=== PATIENT | male | born 1965 | race Caucasian/White ===

== ENCOUNTER 2018-02-26 00:06 | Inpatient (IN) ==
[2018-02-21 13:29] LABS: HEMATOCRIT 48.7 % (42.0-52.0); HEMOGLOBIN 15.9 g/dL (14.0-18.0); MCHC 32.6 g/dL (33-37); MCV 85.9 FL (81-99); RBC 5.67 XMIL (4.7-6.1); WBC 10.28 X1000 (4.8-10.8)
[2018-02-21 13:43] LABS: AGAP 13; BUN 16 mg/dL (8-22); CALCIUM 10.6 mg/dL (8.8-10.2); CHLORIDE 103 mmol/L (98-107); COSMO 283; CREATININE 1.2 mg/dL (0.7-1.2); ESTIMATED GFR > 60; GLUCOSE 100 mg/dL (70-104); POTASSIUM 4.8 mmol/L (3.5-5.1); SODIUM 141 mmol/L (136-145); TCO2 25 mmol/L (25-35)
[2018-02-26] MEDS ORDERED: REGLAN ONE (05:37)
[2018-02-26] MEDS ORDERED: PEPCID ONE (05:37)
[2018-02-26] MEDS ORDERED: LR 1,000 ML ONE ×2 (05:38→07:05)
[2018-02-26] MEDS ORDERED: INVANZ 1 GM/NS 1 GM/50 ML IVPB ONE (05:38)
[2018-02-26] MEDS ORDERED: XYLOCAINE-MPF 2% ONE (06:18)
[2018-02-26] MEDS ORDERED: VERSED ONE (06:18)
[2018-02-26] MEDS ORDERED: QUELICIN (DOSE) ONE (06:19)
[2018-02-26] MEDS ORDERED: DIPRIVAN 1% ONE (06:19)
[2018-02-26] MEDS ORDERED: SODIUM CHLORIDE 0.9% 10 ML ONE (06:19)
[2018-02-26] MEDS ORDERED: NORCURON ONE (06:19)
[2018-02-26] MEDS ORDERED: FENTANYL ONE ×2 (06:19→10:21)
[2018-02-26] MEDS ORDERED: SENSORCAINE-MPF 0.5%/EPI 1:200,000 ONE (07:05)
[2018-02-26] MEDS ORDERED: ZOFRAN ONE ×2 (07:27→11:59)
[2018-02-26] MEDS ORDERED: DECADRON ONE ×2 (07:27→11:59)
[2018-02-26] MEDS ORDERED: EPHEDRINE ONE ×2 (07:36→09:39)
[2018-02-26] MEDS ORDERED: OFIRMEV 1000 MG/ISOTONIC SOLN 1,000 MG/100 ML BOTTLE ONE ×2 (08:30→11:55)
[2018-02-26] MEDS ORDERED: NEOSTIGMINE ONE (08:32)
[2018-02-26] MEDS ORDERED: ROBINUL ONE (08:32)
[2018-02-26 09:11] LABS: URINE SOURCE CATH
[2018-02-26 09:17] LABS: BILIRUBIN URINE NEGATIVE (NEGATIVE); BLOOD URINE NEGATIVE (NEGATIVE); COLOR YELLOW; GLUCOSE URINE NEGATIVE (NEGATIVE); KETONE URINE TRACE mg/dL (NEGATIVE); LEUKOCYTES URINE TRACE (NEGATIVE); NITRITE URINE NEGATIVE (NEGATIVE); PROTEIN URINE 30 mg/dL (NEGATIVE); SP GRAVITY URINE 1.029; TURBIDITY URINE CLEAR (CLEAR); UR EPITHELIAL CELLS <10 /HPF (<10); URINE BACTERIA NEGATIVE /HPF; URINE RBC <10 /HPF (<10); URINE WBC <10 /HPF (<10); UROBILINOGEN URINE NORMAL (NORMAL)
[2018-02-26] MEDS ORDERED: D5 LR 1,000 ML ONE (10:46)
[2018-02-26] MEDS ORDERED: MORPHINE ONE ×4 (11:11→13:55)
--- NOTE | 2018-02-26 14:30 | OPERATIVE NOTE ---
PROCEDURE DATE: 02/26/2018 PREOPERATIVE DIAGNOSES: 1. History of perforated diverticulitis. 2. Status post Adrian procedure. POSTOP DIAGNOSIS: 1. History of perforated diverticulitis. 2. Status post Adrian procedure. PROCEDURE: 1. Diagnostic colonoscopy through the stoma. 2. Laparoscopic colostomy takedown with partial colon resection. SURGEON: Greg Elizondo MD. ANESTHESIA: General. LABORER ELECTROPLATING: Cristian Villavicencio MD. ESTIMATED BLOOD LOSS: 20 mL. COMPLICATIONS: None apparent. SPECIMENS: Portion of the colon at the colostomy site. FINDINGS: The colonoscopy did not reveal any adenomatous polyps. There were a few small hyperplastic polyps. The rectum was also examined with the colonoscope and I did not find any adenomatous polyps in the rectum. The scope was advanced first through the anus all the way up to the rectal stump. I then inserted it into the stoma and was able to navigate around to the terminal ileum and quite easily I visualized the appendiceal orifice and then upon slow withdrawal did not find any pathologic lesions. At the conclusion after the anastomosis we did a anastomotic leak test with proctoscopy and did not see any signs of leak. TECHNIQUE: The patient was brought to the operating room. He was first placed on his left side after general anesthesia was induced. A digital rectal exam was performed. There were no distal rectal masses. There were some clumps of mucus in the distal rectum and anal canal. The colonoscope was advanced into the rectum and up to the staple line. I did not find any pathologic lesions. I then advanced the colonoscope after the patient was placed supine through the left lower quadrant stoma all the way around to the cecum and brought it out slowly. Did not find any pathologic lesions. He was then prepped and draped in usual sterile fashion in [facility] and I scrubbed and then made a 5 mm incision in the right upper quadrant and entered the peritoneal cavity under direct vision the Optiview device. There were quite a bit of adhesions of the small bowel and colon and omentum to the anterior abdominal wall. I was able to find a landing spot for another 5 mm incision and port in the right lower quadrant. Through these ports, I worked to take down the adhesions working bluntly and using the LigaSure device. I then mobilized enough so that I could expose an area in the midline above the umbilicus where I placed an 11 mm incision and port. I then continued mobilizing the omentum off the abdominal wall. I took down adhesions of the small bowel to the stoma and also mobilized the small bowel out of the pelvis, incising quite a few adhesions of the small bowel. When this was complete I then went and passed a dilator up the rectum to ensure that we had a good rectal stump and indeed we did. I rescrubbed into a sterile field. I did mobilize the lateral peritoneal attachments so that the stump was more mobile. I did see the Prolene sutures that were placed on the corners of the stump. These were helpful for identification. I then incised the skin around the stoma in elliptical fashion with a knife and carried this down with cautery through the subcutaneous fat down to the fascia. The stoma was completely mobilized away from the fascia carefully with Metzenbaum scissors and cautery and when it was completely mobile, I resected the distal aspect of the skin and colon 1st by placing a pursestring device proximally and dividing it distally with a knife. The pursestring device was removed. The bowel was opened. I could not pass the 28 dilator into the colon, so we elected to use a 25 anvil and stapler. The anvil was passed in the colon. The pursestring suture was cinched around the anvil. I cleared the fat away so the serosa was exposed all the way around. I then dropped it back into the peritoneal cavity. I closed the peritoneum and posterior fascia with a running #1 Vicryl and closed the anterior fascia with a running #1 Maxon. I then re-insufflated the abdomen. Dr. Villavicencio was present at this portion of the case and helpful throughout the remaining portion with the anastomosis. Dr. Villavicencio passed the stapler up to the rectal stump end and passed the spike out. At first the anvil and colon did not reach down to it easily so I took down more of the white line of Toldt attachments as well as some more small bowel attachments to the descending colon mesentery. This was done with the LigaSure device. We then had enough mobility to bring the colon and anvil down to the spike. We attached the 2 in proper orientation and then Dr. Villavicencio closed the stapler successfully and fired it. He removed the stapler. The donuts were intact, although the proximal donut was somewhat thin on one side. Dr. Villavicencio then placed the proctoscope into the rectum and insufflated air. I put the anastomosis under water and laparoscopically inspected for any signs of leakage of bubbles and we did not see any. Once this was complete I suctioned out the irrigation in the pelvis. I looked around and did not see any bleeding. The bowel appeared to be in good order without any signs of injury. We deflated the abdomen, removed the ports. The epigastric port site fascia was closed with a [id number] 0 Vicryl. The Hollie fascia of the stoma site was closed with interrupted #1 Vicryl pops and then the skin was closed with skin clips. He was awakened in stable condition. There were no apparent complications. He was transferred to the recovery room. cc: Greg Elizondo MD
[2018-02-26] MEDS: MORPHINE IV PRN ×2 (16:25→23:50)
[2018-02-26] MEDS: NORCO-10 PO PRN (18:05)
[2018-02-26] MEDS: ZOFRAN IV PRN (18:08)
[2018-02-26] MEDS: D5 LR 1,000 ML IV SCH (18:34)
[2018-02-27] MEDS: D5 LR 1,000 ML IV SCH ×2 (04:06→15:04)
[2018-02-27] MEDS: MORPHINE IV PRN (04:06)
[2018-02-27] MEDS: ZOFRAN IV PRN ×2 (04:58→19:40)
[2018-02-27] MEDS: LOVENOX SUBQ SCH ×2 (04:58→05:23)
[2018-02-27 05:42] LABS: HEMATOCRIT 41.5 % (42.0-52.0); HEMOGLOBIN 13.8 g/dL (14.0-18.0); MCH 28.6 PG (27-31); MCHC 33.3 g/dL (33-37); MCV 85.9 FL (81-99); MPV 9.2 FL (7.4-10.4); RBC 4.83 XMIL (4.7-6.1); RDW 14.9 % (11.5-14.5); WBC 11.8 X1000 (4.8-10.8)
[2018-02-27 06:00] LABS: AGAP 10; BUN 13 mg/dL (8-22); CALCIUM 8.6 mg/dL (8.8-10.2); CHLORIDE 104 mmol/L (98-107); COSMO 281; ESTIMATED GFR > 60; GLUCOSE 120 mg/dL (70-104); POTASSIUM 3.5 mmol/L (3.5-5.1); SODIUM 140 mmol/L (136-145); TCO2 26 mmol/L (25-35)
[2018-02-27] MEDS ORDERED: FLU VACCINE IM ONE (09:06)
--- NOTE | 2018-02-27 09:13 | GENERAL SURGERY PROGRESS NOTE ---
DATE: 02/27/2018 SUBJECTIVE: He is complaining of pain and says the morphine is not helping. He has had a little nausea and some gas type pain. OBJECTIVE: Vital Signs: He is afebrile. Vital signs are stable. General: He is awake, alert, and oriented x3. No acute distress. Gastrointestinal: Soft, nondistended. Hypoactive bowel sounds. Incision is clean, dry, and intact. Laboratory: White blood cell count 11.8, hemoglobin 13.8, hematocrit 41.5. Electrolytes reviewed and unremarkable. ASSESSMENT/PLAN: A 53-year-old male postoperative day 1 laparoscopic colostomy reversal. We will change his morphine to Dilaudid. I have encouraged him to be out of bed today. We will discontinue the Lizama catheter tomorrow. He will remain on clear liquids as tolerated for now. cc: Greg Elizondo MD
[2018-02-27] MEDS: DILAUDID IV PRN ×4 (09:17→18:21)
[2018-02-27] MEDS: FLAGYL 500 MG/NS 500 MG/100 ML IVPB IV SCH ×3 (09:17→21:02)
[2018-02-27] MEDS: PERIDEX MT SCH ×2 (09:18→21:02)
[2018-02-27] MEDS: NORVASC PO SCH (09:18)
[2018-02-27] MEDS: COZAAR PO SCH (09:18)
[2018-02-27] MEDS ORDERED: PHENERGAN IV ONE (20:46)
[2018-02-27] MEDS ORDERED: SODIUM CHLORIDE 0.9% INJ ONE (20:46)
[2018-02-28] MEDS: ZOFRAN IV PRN ×2 (00:30→11:46)
[2018-02-28] MEDS: DILAUDID IV PRN ×7 (00:30→23:07)
[2018-02-28] MEDS: FLAGYL 500 MG/NS 500 MG/100 ML IVPB IV SCH ×2 (03:29→08:34)
[2018-02-28] MEDS: LOVENOX SUBQ SCH (06:43)
[2018-02-28] MEDS: D5 LR 1,000 ML IV SCH ×2 (07:21→22:45)
[2018-02-28] MEDS: COZAAR PO SCH (08:35)
[2018-02-28] MEDS: PERIDEX MT SCH ×3 (08:36→21:45)
[2018-02-28] MEDS: NORVASC PO SCH (08:36)
[2018-02-28 09:18] LABS: BASO# 0.04 X1000 (0.0-0.2); BASO% 0.2 % (0.0-0.8); EOS% 0.6 % (0.0-10.0); HEMATOCRIT 45.2 % (42.0-52.0); HEMOGLOBIN 14.7 g/dL (14.0-18.0); IMM GRAN# 0.02 X1000 (0.0-0.04); IMM GRAN% 0.1 % (0.0-0.5); LYMPH# 1.82 X1000 (1.2-3.4); LYMPH% 11.3 % (20.5-51.1); MCH 27.9 PG (27-31); MCHC 32.5 g/dL (33-37); MCV 85.9 FL (81-99); MONO# 1.28 X1000 (0.11-0.59); MONO% 7.9 % (1.7-9.3); MPV 9.5 FL (7.4-10.4); NEUT# 12.89 X1000 (1.4-6.5); NEUT% 79.9 % (42.2-75.2); PLT 418 X1000 (130-400); RBC 5.26 XMIL (4.7-6.1); RDW 15.2 % (11.5-14.5); WBC 16.15 X1000 (4.8-10.8)
[2018-02-28 09:55] LABS: AGAP 12; BUN 19 mg/dL (8-22); CALCIUM 9.4 mg/dL (8.8-10.2); CHLORIDE 100 mmol/L (98-107); COSMO 284; CREATININE 1.2 mg/dL (0.7-1.2); ESTIMATED GFR > 60; GLUCOSE 143 mg/dL (70-104); POTASSIUM 3.4 mmol/L (3.5-5.1); SODIUM 140 mmol/L (136-145); TCO2 28 mmol/L (25-35)
--- NOTE | 2018-02-28 10:44 | Diag Imaging Result Doc PS360 ---
EXAM: CHEST/ABD TUBE PLACEMENT 02/28/2018 HISTORY: NG tube placement TECHNIQUE: AP chest and abdomen for NG tube placement at 1032 COMMENT: The NG tube tip is in the fundus of the stomach. There is gas throughout the visualized small and large bowel. IMPRESSION: NG tube in the stomach. Electronically signed by Mathieu Kim 02/28/2018 10:42 AM
[2018-02-28] MEDS: PROTONIX IV SCH (16:54)
[2018-02-28] MEDS: SODIUM CHLORIDE 0.9% INJ SCH (16:54)
[2018-02-28 17:04] LABS: HEMATOCRIT 42.7 % (42.0-52.0); HEMOGLOBIN 13.9 g/dL (14.0-18.0)
[2018-02-28] MEDS ORDERED: CHLORASEPTIC SORE THROAT LOZENGE MT PRN (20:28)
[2018-02-28] MEDS: CHLORASEPTIC SPRAY MT PRN (23:15)
[2018-03-01] MEDS: PROTONIX IV SCH ×2 (04:03→17:09)
[2018-03-01] MEDS: SODIUM CHLORIDE 0.9% INJ SCH ×2 (04:03→17:09)
[2018-03-01] MEDS: CHLORASEPTIC SPRAY MT PRN (04:03)
[2018-03-01] MEDS: DILAUDID IV PRN ×5 (04:03→22:50)
[2018-03-01] MEDS: LOVENOX SUBQ SCH (05:39)
[2018-03-01 05:57] LABS: BASO# 0.03 X1000 (0.0-0.2); BASO% 0.3 % (0.0-0.8); EOS# 0.24 X1000 (0.0-0.7); HEMATOCRIT 40.5 % (42.0-52.0); IMM GRAN# 0.02 X1000 (0.0-0.04); IMM GRAN% 0.2 % (0.0-0.5); LYMPH# 1.38 X1000 (1.2-3.4); LYMPH% 11.8 % (20.5-51.1); MCH 28.4 PG (27-31); MCHC 32.1 g/dL (33-37); MCV 88.4 FL (81-99); MONO# 0.88 X1000 (0.11-0.59); MONO% 7.5 % (1.7-9.3); MPV 9.7 FL (7.4-10.4); NEUT# 9.16 X1000 (1.4-6.5); NEUT% 78.2 % (42.2-75.2); PLT 367 X1000 (130-400); RBC 4.58 XMIL (4.7-6.1); RDW 15.2 % (11.5-14.5); WBC 11.71 X1000 (4.8-10.8)
--- NOTE | 2018-03-01 06:00 | GENERAL SURGERY PROGRESS NOTE ---
DATE: 02/28/2018 SUBJECTIVE: The patient feels rather lousy today. Some abdominal pain. He has had multiple episodes of nausea and vomiting. An NG tube was placed earlier by the nursing staff, and he has had over a 1000 mL of dark [id number]-[id number]-tinged gastric fluid removed. He does feel a little better after this. OBJECTIVE: Vital Signs: He is afebrile. Vital signs are stable. General: He is awake, alert and oriented x3, but does appear to be ill. He is nontoxic appearing. Cardiovascular: Regular rate and rhythm. Respiratory: Bilateral breath sounds. No work of breathing. Gastrointestinal: Soft, nondistended. Hypoactive bowel sounds. Incision is clean, dry, and intact. LABORATORIES: Reviewed. ASSESSMENT/PLAN: The patient is a 62-year-old male status post colostomy takedown, now with postoperative nausea and vomiting. He appears to have gastritis and some upper gastrointestinal bleed. We will check a hemoglobin and hematocrit this afternoon and make sure he is on Protonix. We will keep the nasogastric tube to suction and await better return of bowel function. cc: Greg Elizondo MD
--- NOTE | 2018-03-01 09:52 | GENERAL SURGERY PROGRESS NOTE ---
DATE: 03/01/2018 SUBJECTIVE: The patient is feeling a little better today, less pain, and less nausea. He has started passing quite a bit of gas, he says. No chest pain. No shortness of breath. OBJECTIVE: Vital signs: He is afebrile. Vital signs are stable. NG tube output 1525 mL over the last 24 hours, most of that yesterday morning, only 300 mL last night. General: He is alert and orient x4 in no acute distress. CV: Regular rate and rhythm. Respiratory: Bilateral breath sounds. No work of breathing. Gastrointestinal: Soft, nondistended. He does have bowel sounds. Incision is clean, dry, and intact. Mild tenderness to palpation as expected. LABORATORY: White blood cell count 11, hemoglobin 13, hematocrit 40.5. ASSESSMENT AND PLAN: A 53-year-old male status post colostomy takedown with postoperative nausea and vomiting. This is improving. We will clamp his NG tube, and check a residual in 6 hours. Possibly remove it later today and start clear liquids again. I have encouraged him to be out of bed to a chair. He is on Lovenox for deep venous thrombosis prophylaxis. cc: Greg Elizondo MD
[2018-03-01] MEDS: PERIDEX MT SCH ×2 (10:06→22:46)
[2018-03-01] MEDS: D5 1/2 NS + KCL 20 MEQ 1,000 ML IV SCH (11:41)
[2018-03-01] MEDS: COZAAR PO SCH (14:20)
[2018-03-01] MEDS: NORVASC PO SCH (14:20)
[2018-03-01] MEDS: NORCO-10 PO PRN (22:45)
[2018-03-02] MEDS: D5 1/2 NS + KCL 20 MEQ 1,000 ML IV SCH (01:02)
[2018-03-02] MEDS: DILAUDID IV PRN ×7 (01:47→21:09)
[2018-03-02] MEDS: ZOFRAN IV PRN (03:51)
[2018-03-02] MEDS: NORCO-10 PO PRN (03:51)
[2018-03-02] MEDS: SODIUM CHLORIDE 0.9% INJ SCH ×2 (04:49→17:39)
[2018-03-02] MEDS: PROTONIX IV SCH ×2 (04:49→17:39)
[2018-03-02] MEDS: LOVENOX SUBQ SCH ×2 (04:56→08:24)
[2018-03-02 06:15] LABS: BASO# 0.03 X1000 (0.0-0.2); BASO% 0.3 % (0.0-0.8); EOS# 0.49 X1000 (0.0-0.7); EOS% 5.5 % (0.0-10.0); HEMATOCRIT 37.8 % (42.0-52.0); HEMOGLOBIN 12.3 g/dL (14.0-18.0); LYMPH# 1.67 X1000 (1.2-3.4); LYMPH% 18.7 % (20.5-51.1); MCH 28.5 PG (27-31); MCHC 32.5 g/dL (33-37); MCV 87.7 FL (81-99); MONO# 0.78 X1000 (0.11-0.59); MONO% 8.7 % (1.7-9.3); MPV 9.7 FL (7.4-10.4); NEUT# 5.97 X1000 (1.4-6.5); NEUT% 66.8 % (42.2-75.2); PLT 342 X1000 (130-400); RBC 4.31 XMIL (4.7-6.1); RDW 14.5 % (11.5-14.5); WBC 8.94 X1000 (4.8-10.8)
[2018-03-02 06:54] LABS: AGAP 9; BUN 8 mg/dL (8-22); CALCIUM 8.8 mg/dL (8.8-10.2); CHLORIDE 100 mmol/L (98-107); COSMO 277; CREATININE 0.9 mg/dL (0.7-1.2); ESTIMATED GFR > 60; GLUCOSE 121 mg/dL (70-104); POTASSIUM 3.3 mmol/L (3.5-5.1); SODIUM 139 mmol/L (136-145); TCO2 30 mmol/L (25-35)
[2018-03-02] MEDS: COZAAR PO SCH (09:17)
[2018-03-02] MEDS: NORVASC PO SCH (09:17)
[2018-03-02] MEDS: PERIDEX MT SCH ×2 (09:18→21:09)
--- NOTE | 2018-03-02 12:56 | GENERAL SURGERY PROGRESS NOTE ---
DATE: 03/02/2018 SUBJECTIVE: He is feeling a little better, less pain, no nausea or vomiting. He is passing gas. He has had a small bowel movement and tolerating clear liquids. He has also ambulated and voided. OBJECTIVE: Vital signs: He is afebrile. Vital signs are stable. General: He is awake, alert, oriented x3, in no acute distress. CV: Regular rate and rhythm. Respiratory: Bilateral breath sounds, no work of breathing. GI: Soft, nondistended, positive bowel sounds. Incision is clean, dry, and intact, mildly tender as expected. LABORATORY: White blood cell count 8.9, hemoglobin 12.3, hematocrit 37.9, platelet count 342. Electrolytes reviewed and notable for potassium of 3.3. ASSESSMENT AND PLAN: A 53-year-old male status post laparoscopic colostomy reversal postoperative day 4. He is making progress. I will advance him to a full liquid diet today, Hep-Lock his IV, and give him oral potassium. We are anticipating discharge tomorrow if he does not have any setbacks today. cc: Greg Elizondo MD
[2018-03-02] MEDS: KLOR-CON POWDER PACKET PO SCH (21:21)
[2018-03-03] MEDS: DILAUDID IV PRN ×3 (00:59→08:24)
[2018-03-03] MEDS: LOVENOX SUBQ SCH ×2 (04:55→06:28)
[2018-03-03] MEDS: PROTONIX IV SCH (04:55)
[2018-03-03] MEDS: NORVASC PO SCH (08:12)
[2018-03-03] MEDS: PERIDEX MT SCH (08:12)
[2018-03-03] MEDS: COZAAR PO SCH (08:12)
[2018-03-03] MEDS: KLOR-CON POWDER PACKET PO SCH (08:13)
[2018-03-03] MEDS: NORCO-10 PO PRN ×2 (08:13→11:44)
[2018-03-03 09:21] VITALS: BP 148/108
--- NOTE | 2018-03-03 13:17 | DISCHARGE SUMMARY ---
ADMISSION DATE: 02/26/2018 DISCHARGE DATE: 03/03/2018 ADMITTING DIAGNOSIS: End-colostomy. DISCHARGE DIAGNOSIS: End-colostomy. PRINCIPAL PROCEDURE: Colostomy takedown per Dr. Greg Elizondo on 02/26/2018. DISCHARGE DISABILITY: Full. DISCHARGE DISPOSITION: He will return to see Dr. Greg Elizondo next week in our outpatient offices. DISCHARGE DIET: Regular. DISCHARGE MEDICATIONS: He is to return to his home medications. HOSPITAL COURSE: Mr. Laz Villalpando is a 53-year-old white male, who has required a sigmoid colon resection with end-colostomy for diverticulitis and peritoneal abscess 11/30/[address] Greg Elizondo. He returned this hospitalization for colostomy takedown. He underwent a bowel prep at home and presented on 02/26/2018 and went to the operating room, and had a laparoscopic-assisted colostomy takedown per Dr. Elizondo. It was felt the surgery went well. He went to the recovery room, and then was hospitalized on the floor. His postoperative convalescence was complicated by requiring an NG tube on postop day 2, because of abdominal distention. Over the last 3 days, his abdomen has become softer. He has had bowel activity and flatus. He is tolerating a regular diet. His incisions seemed to be healing well. His abdomen is soft. He is awake, cooperative, moves around the room, and was felt safe to discharge him home under the care of his family with followup with Dr. Elizondo next week. He knows to contact us with any problems such as increasing abdominal pain, distention, nausea and vomiting. cc: MD Greg Sanders MD
== END 2018-03-03 12:04 | disposition home health service (06) | DRG 346 ==
LOC: SURHOLD 00:06 → 4N 15:16
PROVIDERS: ADMIT Surgery; ATTEND Surgery
CPT/HCPCS: 74000; 74018; 80048; 81001; 85014; 85018; 85025; 85027; 86850; 86900; 86901; 87088; 88307; 94761; 94799; A9270; C9113; J0131; J0330; J1100; J1170; J1335; J1650; J2250; J2270; J2405; J2550; J3010; J3480; J7120; J7121; S0030; S0164